=== PATIENT | male | born 1960 | race Caucasian/White ===

== ENCOUNTER 2017-06-05 12:39 | Emergency (ER) | payer SELFPAY ==
[~2017-06-05] VITALS: Ht 172.7 cm; Wt 72.5 kg
[~2017-06-05 12:39] MED LIST: BACT800T5 PO; EPIP0.3I IM
[2017-06-05 12:40] VITALS: BP 174/91; PULSE 109; RESP 20; TEMP 98.2; O2SAT 97
[2017-06-05] MEDS ORDERED: NAPR500T2 PO (14:32)
--- NOTE | 2017-06-05 14:36 | PD ---
HPI Chief Complaint: Back/ Neck Pain or Injury Time Seen by Provider: 14:27 Travel History International Travel<30 days: No Contact w/Intl Traveler<30days: No Traveled to known affect area: No History of Present Illness HPI 56-year-old male with history of chronic lower back pain presents for evaluation of the same. He reports a 10 year history of chronic lower back pain with sciatic symptoms. Over the past few weeks he has had increased lower back pain and this is what prompted evaluation. The pain is an aching pain in his lower back which is worse with movement. 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 He denies any trauma. He denies any current radicular symptoms. He denies any bowel or bladder incontinence, saddle anesthesia, weakness, abdominal pain, flank pain, testicular or scrotal pain, nausea or vomiting. He is not currently using any medication for symptom relief. He has no other complaints at this time. PFSH Past Medical History Arthritis: Yes (in both knees, neck, and back) Autoimmune Disease: No Heart Rhythm Problems: No Cancer: No Cardiovascular Problems: Yes (HTN, cholesterol) High Cholesterol: No Chemotherapy: No Cerebrovascular Accident: No Diabetes: No Diminished Hearing: No Endocrine: No Hypertension: Yes Immune Disorder: No Neurologic: No Psychiatric: No Respiratory: Yes Migraines: No Radiation Therapy: No Seizures: No Sickle Cell Disease: No Thyroid Disease: No Past Surgical History Abdominal Surgery: No AICD: No Arteriovenous Shunt: No Cardiac Surgery: No Ear Surgery: No Endocrine Surgery: No Eye Surgery: No Genitourinary Surgery: No Gynecologic Surgery: No Insulin Pump: No Joint Replacement: No Oral Surgery: No Pacemaker: No Thoracic Surgery: No Tonsillectomy: Yes Other Surgery: Yes (8 on r. knee; 1 on l. knee; tonsillectomy; MRSA on R. knee from operation.) Social History Alcohol Use: Yes (GREATER THAN 12 BEERS DAILY X 3 YRS) Tobacco Use: Yes (1 PK DAILY X 20 YRS) Substance Use: No Allergies-Medications (Allergen,Severity, Reaction): Coded Allergies: lisinopril (Unverified Allergy, Severe, seizure, 11/28/16) Reported Meds & Prescriptions Reported Meds & Active Scripts Active Naproxen 500 Mg Tab 500 Mg PO BID 10 Days Bactrim DS (Sulfamethoxazole-Trimethoprim DS) 1 Tab Tab 1 Tab PO BID 7 Days Epipen (Epinephrine HCl) 0.3 Mg Inj 0.3 Mg IM ONCE GIVE IM IN THIGH, MAY REPEAT IF NEEDED Review of Systems Except as stated in HPI: all other systems reviewed are Neg Physical Exam Narrative GENERAL: Well-developed well-nourished male in no acute distress SKIN: Warm and dry. HEAD: Atraumatic. Normocephalic. EYES: Pupils equal and round. No scleral icterus. No injection or drainage. ENT: No nasal bleeding or discharge. Mucous membranes pink and moist. NECK: Trachea midline. No JVD. CARDIOVASCULAR: Regular rate and rhythm. No murmur appreciated. RESPIRATORY: No accessory muscle use. Clear to auscultation. Breath sounds equal bilaterally. GASTROINTESTINAL: Abdomen soft, non-tender, nondistended. Hepatic and splenic margins not palpable. No palpable pulsatile masses MUSCULOSKELETAL: No obvious deformities. No clubbing. No cyanosis. No edema. No reproducible tenderness to palpation. 5 out of 5 muscle strength in lower extremity bilaterally. No CVA tenderness. NEUROLOGICAL: Awake and alert. No obvious cranial nerve deficits. Motor grossly within normal limits. Normal speech. PSYCHIATRIC: Appropriate mood and affect; insight and judgment normal. Data Data Last Documented VS Vital Signs Date Time Temp Pulse Resp B/P (MAP) Pulse Ox O2 Delivery O2 Flow Rate FiO2 06/05/17 12:40 98.2 109 20 174/91 (118) 97 Room Air Orders Orders Ketorolac Inj (Toradol Inj) (06/05/17 14:45) Ed Discharge Order (06/05/17 14:32) [facility] Medical Decision Making Medical Screen Exam Complete: Yes Emergency Medical Condition: Yes Medical Record Reviewed: Yes Differential Diagnosis Herniated nucleus pulposus, degenerative disc disease, spinal stenosis, compression fracture, AAA, ankylosing spondylitis Narrative Course His history and examination are consistent with chronic lower back pain. He has no red flag symptoms. The patient will be treated symptomatically with a short course of NSAIDs. Recommended follow-up with his primary care physician. Stable for discharge. Diagnosis Primary Impression: Chronic lower back pain Additional Instructions: Medication as needed. Take with meals. Avoid strenuous activity. Follow-up with primary care physician. Return for any emergent medical conditions. Med/Other Pt SpecificInfo: Prescription(s) given Scripts Naproxen (Naproxen) 500 Mg Tab 500 MG PO BID for 10 Days, #20 TAB 0 Refills Prov: Jill Hutchinson MD 06/05/17 Disposition: 01 DISCHARGE HOME Condition: Stable Seb Guardado Jun 05, 2017 14:36
[2017-06-05] MEDS ORDERED: KETOROLAC TROMETHAMINE 60 MG/2 ML (IM) VIAL IM ONE (14:45)
== END 2017-06-05 15:10 | disposition home or self-care (01) ==
LOC: NEPK 12:39
DX: M54.5 Low back pain (principal); G89.29 Other chronic pain; F17.200 Nicotine dependence, unspecified, uncomplicated
CPT/HCPCS: 96372; 99283; J1885

== ENCOUNTER 2017-06-24 19:46 | Inpatient (IN) | payer SELFPAY ==
[~2017-06-24] VITALS: Ht 172.7 cm; Wt 70.0 kg
[~2017-06-24 19:46] MED LIST changes: +NAPR500T2 PO
[2017-06-24 20:20] VITALS: BP_SYST 148; BP_SYST 154; BP_DIAS 83; BP_DIAS 99; PULSE 128; PULSE 93; RESP 16; TEMP 97.8; TEMP 98.5; O2SAT 98; O2SAT 99
--- NOTE | 2017-06-24 21:31 | PD ---
HPI Chief Complaint: Dizziness Time Seen by Provider: 21:14 Travel History International Travel<30 days: No Contact w/Intl Traveler<30days: No Traveled to known affect area: No History of Present Illness HPI 56-year-old male complains of dizziness. Patient states that the dizziness started 2 weeks ago. Patient states that the dizziness is worse with standing position. Patient denies any headache. Patient denies any visual change. Patient denies any ringing of the ears. Patient denies any neck pain. Patient denies any chest pain or shortness of breath. Patient denies abdominal pain. Patient states that he has history of alcohol abuse. Patient states that he drinks every day. Patient states that he has extremity shaking if he stops drinking. Patient denies any history of DT. Patient has history of chronic joint pain and back pain for 20 years. Patient states that he takes NSAIDs occasionally for joint pain. Patient denies any illicit drug abuse. Patient denies other medical problem. PFSH Past Medical History Arthritis: Yes (in both knees, neck, and back) Autoimmune Disease: No Heart Rhythm Problems: No Cancer: No Cardiovascular Problems: Yes (HTN, cholesterol) High Cholesterol: No Chemotherapy: No Cerebrovascular Accident: No Diabetes: No Diminished Hearing: No Endocrine: No Hypertension: Yes Immune Disorder: No Neurologic: No Psychiatric: No Respiratory: Yes Migraines: No Radiation Therapy: No Seizures: No Sickle Cell Disease: No Thyroid Disease: No Past Surgical History Abdominal Surgery: No AICD: No Arteriovenous Shunt: No Cardiac Surgery: No Ear Surgery: No Endocrine Surgery: No Eye Surgery: No Genitourinary Surgery: No Gynecologic Surgery: No Insulin Pump: No Joint Replacement: No Oral Surgery: No Pacemaker: No Thoracic Surgery: No Tonsillectomy: Yes Other Surgery: Yes (8 on r. knee; 1 on l. knee; tonsillectomy; MRSA on R. knee from operation.) Social History Alcohol Use: Yes (GREATER THAN 12 BEERS DAILY X 3 YRS) Tobacco Use: Yes (1 PK DAILY X 20 YRS) Substance Use: No Allergies-Medications (Allergen,Severity, Reaction): Coded Allergies: lisinopril (Unverified Allergy, Severe, seizure, 06/24/17) Reported Meds & Prescriptions Reported Meds & Active Scripts Active No Active Prescriptions or Reported Medications Review of Systems General / Constitutional: No: Fever Eyes: No: Visual changes HENT: Positive: Lightheadedness, No: Headaches Cardiovascular: No: Chest Pain or Discomfort Respiratory: No: Shortness of Breath Gastrointestinal: No: Abdominal Pain Genitourinary: No: Dysuria Musculoskeletal: No: Pain Skin: No Rash Neurologic: No: Weakness Psychiatric: No: Depression Endocrine: No: Polydipsia Hematologic/Lymphatic: No: Easy Bruising Physical Exam Narrative GENERAL: Well-nourished, well-developed patient. SKIN: Focused skin assessment warm/dry. HEAD: Normocephalic. EYES: No scleral icterus. No injection or drainage. Pupils 2 mm equal reactive. NECK: Supple, trachea midline. No JVD or lymphadenopathy. CARDIOVASCULAR: Regular rate and rhythm without murmurs, gallops, or rubs. RESPIRATORY: Breath sounds equal bilaterally. No accessory muscle use. GASTROINTESTINAL: Abdomen soft, non-tender, nondistended. MUSCULOSKELETAL: No cyanosis, or edema. BACK: Nontender without obvious deformity. No CVA tenderness. Neurologic exam: Patient is awake alert oriented 3. Patient has fine tremor of the extremity. Patient moves all extremities well. No obvious focal neurological deficit. Data Data Last Documented VS Vital Signs Date Time Temp Pulse Resp B/P (MAP) Pulse Ox O2 Delivery O2 Flow Rate FiO2 06/25/17 00:32 108 21 149/73 (98) 98 Room Air 06/24/17 20:20 97.8 Orders Orders Complete Blood Count With Diff (06/24/17 21:25) Comprehensive Metabolic Panel (06/24/17 21:25) Prothrombin Time / Inr (Pt) (06/24/17 21:25) Act Partial Throm Time (Ptt) (06/24/17 21:25) Urinalysis - C+S If Indicated (06/24/17 21:25) Magnesium (Mg) (06/24/17 21:25) Thyroid Stimulating Hormone (06/24/17 21:25) Phosphorus (Po4) (06/24/17 21:25) Chest, Single Ap (06/24/17 21:25) Ct Brain W/O Iv Contrast(Rout) (06/24/17 21:25) Iv Access Insert/Monitor (06/24/17 21:25) Ecg Monitoring (06/24/17 21:25) Oximetry (06/24/17 21:25) Drug Screen, Random Urine (06/24/17 21:25) Alcohol (Ethanol) (06/24/17 21:25) Sodium Chlor 0.9% 1000 Ml Inj (Ns 1000 M (06/24/17 21:45) Thiamine Inj (Thiamine Inj) (06/24/17 21:45) Lorazepam Inj (Ativan Inj) (06/25/17 00:30) Thiamine Inj (Thiamine Inj) (06/25/17 00:30) Sodium Chlor 0.9% 1000 Ml Inj (Ns 1000 M (06/25/17 00:30) Alcohol Withdrawal Asmt-Ciwa ONCE (06/25/17 00:31) Flumazenil Inj (Romazicon Inj) (06/25/17 00:45) Lorazepam (Ativan) (06/25/17 00:45) Lorazepam Inj (Ativan Inj) (06/25/17 00:45) Lorazepam (Ativan) (06/25/17 00:45) Lorazepam Inj (Ativan Inj) (06/25/17 00:45) Lorazepam Inj (Ativan Inj) (06/25/17 00:45) Lorazepam Inj (Ativan Inj) (06/25/17 00:45) Labs Laboratory Tests Test 06/24/17 21:35 White Blood Count 12.6 TH/MM3 Red Blood Count 3.80 MIL/MM3 Hemoglobin 14.2 GM/DL Hematocrit 41.3 % Mean Corpuscular Volume 108.7 FL Mean Corpuscular Hemoglobin 37.3 PG Mean Corpuscular Hemoglobin Concent 34.3 % Red Cell Distribution Width 13.7 % Platelet Count 170 TH/MM3 Mean Platelet Volume 8.8 FL Neutrophils (%) (Auto) 87.9 % Lymphocytes (%) (Auto) 4.4 % Monocytes (%) (Auto) 7.2 % Eosinophils (%) (Auto) 0.1 % Basophils (%) (Auto) 0.4 % Neutrophils # (Auto) 11.1 TH/MM3 Lymphocytes # (Auto) 0.5 TH/MM3 Monocytes # (Auto) 0.9 TH/MM3 Eosinophils # (Auto) 0.0 TH/MM3 Basophils # (Auto) 0.0 TH/MM3 CBC Comment DIFF FINAL Differential Comment Prothrombin Time 11.8 SEC Prothromb Time International Ratio 1.2 RATIO Activated Partial Thromboplast Time 24.7 SEC Blood Urea Nitrogen 24 MG/DL Creatinine 2.33 MG/DL Random Glucose 92 MG/DL Total Protein 8.3 GM/DL Albumin 4.6 GM/DL Calcium Level 9.5 MG/DL Phosphorus Level 4.3 MG/DL Magnesium Level 2.0 MG/DL Alkaline Phosphatase 87 U/L Aspartate Amino Transf (AST/SGOT) 104 U/L Alanine Aminotransferase (ALT/SGPT) 74 U/L Total Bilirubin 1.9 MG/DL Sodium Level 130 MEQ/L Potassium Level 3.7 MEQ/L Chloride Level 94 MEQ/L Carbon Dioxide Level 20.2 MEQ/L Anion Gap 16 MEQ/L Estimat Glomerular Filtration Rate 29 ML/MIN Thyroid Stimulating Hormone 3rd Gen 1.530 uIU/ML Ethyl Alcohol Level LESS THAN 3 MG/DL MDM Medical Decision Making Medical Screen Exam Complete: Yes Emergency Medical Condition: Yes Interpretation(s) 22:51 PM. Chest x-ray shows no acute consolidation. CBC WBC 12.6. Hemoglobin 14.2 hematocrit 41.3. MCV 108.7. 87 neutrophil. 12:25 AM. Last Impressions Head CT 06/24/172124 Signed Impressions: Service Date/Time: Saturday, June 24, 2017 22:35 - CONCLUSION: 1. No acute findings in the brain. 2. Mild central and cortical atrophy and right lacunar infarct. Ankit Sparks MD Chest X-Ray 06/24/172124 Signed Impressions: Service Date/Time: Saturday, June 24, 2017 22:05 - CONCLUSION: The lungs are clear. Ankit Sparks MD 12:25 AM. Sodium 130. Chloride 94. Bicarb 20.2. Anion gap 16. BUN 24. Creatinine 2.33. GFR 29. Bili 1.9. AST 104. INR 1.2. Alcohol less than 3. Differential Diagnosis Differential diagnosis including alcohol intoxication, electrolyte imbalance, dehydration, alcohol withdrawal, deconditioning. Narrative Course 56-year-old male complains of dizziness. History of alcohol abuse. Normal saline solution 1 25 cc an hour. Ativan 2 mg IV. Thiamine 100 mg IV. Patient will be admitted for alcohol withdrawal. WA protocol started. Diagnosis Primary Impression: Alcohol withdrawal Qualified Codes: F10.230 - Alcohol dependence with withdrawal, uncomplicated Additional Impression: Hyponatremia Admitting Information Admitting Physician Requests: Admit Scripts No Active Prescriptions or Reported Meds Shay Gibson MD Jun 24, 2017 21:31
[2017-06-24 21:34] VITALS: BP 155/100; PULSE 105; RESP 18; O2SAT 95
[2017-06-24] MEDS ORDERED: THIAMINE INJ 100 MG in SODIUM CHLORIDE 0.9% INJ 100 ML IV ONE (21:45)
[2017-06-24] MEDS ORDERED: SODIUM CHLOR 0.9% 1000 ML INJ 1,000 ML IV ONE (21:45)
[2017-06-24 22:14] LABS: AUTOMATED NEUTROPHIL # 11.1 TH/MM3 (1.8-7.7); BASOPHIL % 0.4 % (0.0-2.0); EOSINOPHIL % 0.1 % (0.0-4.0); HEMATOCRIT 41.3 % (39.0-51.0); HEMOGLOBIN 14.2 GM/DL (13.0-17.0); LYMPH % 4.4 % (9.0-44.0); LYMPHOCYTE # 0.5 TH/MM3 (1.0-4.8); MEAN CELL VOLUME 108.7 FL (80.0-100.0); MEAN CORPUSCULAR HEMOGLOBIN 37.3 PG (27.0-34.0); MEAN CORPUSCULAR HGB CONC 34.3 % (32.0-36.0); MEAN PLATELET VOLUME 8.8 FL (7.0-11.0); MONO % 7.2 % (0.0-8.0); MONOCYTE # 0.9 TH/MM3 (0-0.9); NEUT % 87.9 % (16.0-70.0); PLATELET COUNT 170 TH/MM3 (150-450); RED CELL DISTRIBUTION WIDTH 13.7 % (11.6-17.2); WHITE BLOOD COUNT 12.6 TH/MM3 (4.0-11.0)
--- NOTE | 2017-06-24 22:28 | RADRPT ---
EXAM DATE/TIME: 06/24/2017 22:05 [facility] COMPARISON: No previous studies available for comparison. INDICATIONS : Short of breath. Weakness. Falls. MEDICAL HISTORY : None. SURGICAL HISTORY : None. ENCOUNTER: Initial ACUITY: 4 - 6 days PAIN SCORE: 7/10 LOCATION: Bilateral chest FINDINGS: A single view of the chest demonstrates the lungs to be symmetrically aerated without evidence of mas s, infiltrate or effusion. The cardiomediastinal contours are unremarkable. Osseous structures are intact. CONCLUSION: The lungs are clear. Ankit Sparks MD on June 24, 2017 at 22:26 Board Certified Radiologist. This report was verified electronically.
[2017-06-24 22:32] LABS: INTERNATIONAL NORMALIZED RATIO 1.2 RATIO; PROTHROMBIN TIME - PATIENT 11.8 SEC (9.8-11.6)
[2017-06-24 22:40] LABS: ALBUMIN 4.6 GM/DL (3.4-5.0); AST (GOT) 104 U/L (15-37); BICARBONATE 20.2 MEQ/L (21.0-32.0); BLOOD UREA NITROGEN 24 MG/DL (7-18); CALCIUM 9.5 MG/DL (8.5-10.1); CHLORIDE 94 MEQ/L (98-107); CREATININE 2.33 MG/DL (0.60-1.30); GLOMERULAR FILTRATION RATE 29 ML/MIN (>89); GLUCOSE,RANDOM 92 MG/DL (74-106); SODIUM (NA) 130 MEQ/L (136-145)
[2017-06-24 22:42] LABS: ALT (GPT) 74 U/L (12-78); PHOSPHORUS 4.3 MG/DL (2.5-4.9)
[2017-06-24 22:51] LABS: ALKALINE PHOSPHATASE 87 U/L (45-117); TOTAL BILIRUBIN ADULT 1.9 MG/DL (0.2-1.0); TOTAL PROTEIN 8.3 GM/DL (6.4-8.2)
--- NOTE | 2017-06-24 22:58 | RADRPT ---
EXAM DATE/TIME: 06/24/2017 22:35 [facility] COMPARISON: No previous studies available for comparison. INDICATIONS : Dizziness x two weeks. Weakness today. RADIATION DOSE: 66.34 CTDIvol (mGy) MEDICAL HISTORY : Cardiovascular disease. Hypertension. SURGICAL HISTORY : None. ENCOUNTER: Initial ACUITY: 2 weeks PAIN SCALE: 0/10 LOCATION: cranial TECHNIQUE: Multiple contiguous axial images were obtained of the head. Using automated exposure control and adj ustment of the mA and/or kV according to patient size, radiation dose was kept as low as reasonably a chievable to obtain optimal diagnostic quality images. DICOM format image data is available electro nically for review and comparison. FINDINGS: CEREBRUM: The ventricles, sulci, and basal cisterns are prominent, characteristic of mild central atrophy. The re is a lacunar infarct in the right snider radiata.. No evidence of midline shift, mass lesion, hem orrhage or acute infarction. No extra-axial fluid collections are seen. POSTERIOR FOSSA: The cerebellum and brainstem are intact. The 4th ventricle is midline. The cerebellopontine angle i s unremarkable. EXTRACRANIAL: The visualized portion of the orbits is intact. SKULL: The calvaria is intact. No evidence of skull fracture. CONCLUSION: 1. No acute findings in the brain. 2. Mild central and cortical atrophy and right lacunar infarct. Ankit Sparks MD on June 24, 2017 at 22:49 Board Certified Radiologist. This report was verified electronically.
[2017-06-25] VITALS (10 sets, daily range): BP systolic 132–159; BP diastolic 73–96; PULSE 62–108; RESP 15–22; TEMP 98.6–99; O2SAT 94–99
[2017-06-25] MEDS ORDERED: THIAMINE INJ 100 MG in SODIUM CHLORIDE 0.9% INJ 100 ML IV ONE (00:30)
[2017-06-25] MEDS ORDERED: SODIUM CHLOR 0.9% 1000 ML INJ 1,000 ML IV SCH (00:30)
[2017-06-25] MEDS ORDERED: LORazepam 2 MG/ML VIAL IV PUSH ONE (00:30)
[2017-06-25] MEDS ORDERED: FLUMAZENIL 0.5 MG/5 ML VIAL IV PUSH PRN (00:45)
[2017-06-25] MEDS ORDERED: LORazepam 1 MG TAB PO PRN (00:45)
[2017-06-25] MEDS ORDERED: LORazepam 2 MG/ML VIAL IV PUSH PRN ×4 (00:45)
[2017-06-25] MEDS ORDERED: LORazepam 2 MG TAB PO PRN (00:45)
[2017-06-25] MEDS ORDERED: SENNOSIDES 8.6 MG TAB PO PRN (01:15)
[2017-06-25] MEDS ORDERED: MAGNESIUM HYDROXIDE SUSP 30 ML CUP PO PRN (01:15)
[2017-06-25] MEDS ORDERED: SODIUM CHLORIDE 0.9% FLUSH 10 ML FLUSH IV FLUSH PRN (01:15)
[2017-06-25] MEDS ORDERED: LACTULOSE SYRUP 20 GM/30 ML CUP PO PRN (01:15)
[2017-06-25] MEDS ORDERED: ACETAMINOPHEN 325 MG TAB PO PRN (01:15)
[2017-06-25] MEDS ORDERED: ONDANSETRON HCL 4 MG/2 ML VIAL IVP PRN (01:15)
[2017-06-25] MEDS ORDERED: BISACODYL 10 MG SUPP RECTAL PRN (01:15)
[2017-06-25] MEDS: SODIUM CHLOR 0.9% 1000 ML INJ 1,000 ML IV SCH ×3 (01:19→21:04)
--- NOTE | 2017-06-25 03:10 | HHI.HP ---
HPI Service [facility] Primary Care Physician No Primary Care Physician Admission Diagnosis Alcohol withdrawal Diagnoses: (1) Alcohol abuse Diagnosis: Principal (2) SUNDAY (acute kidney injury) Diagnosis: Principal (3) Leukocytosis Diagnosis: Principal (4) Tobacco abuse Diagnosis: Principal Travel History International Travel<30 Days: No Contact w/Intl Traveler <30 Da: No Traveled to Known Affected Are: No History of Present Illness This is a 56-year-old male with PMH of HTN, Alcohol Abuse and Tobacco Abuse who presented to the ER with complaints of dizziness and "shaking". Drinks more than 12 beers/day, reports h/o withdrawal symptoms. Denies fever, chills, cough , nausea, vomiting or diarrhea. On arrival, BP 154/99, HR 128, O2 sat 99% on RA , Afebrile. WBC 12. Na 130, Creatinine 2.33, previously 0.29 on 06/19/13. INR 1.2. Alcohol negative. CXR with no acute findings. CT Head Negative for Acute Findings, Old Right Lacunar Infarct. Started on CIWA in ER. Review of Systems Except as stated in HPI: all other systems reviewed are Neg ROS: 14 point review of systems otherwise negative. Past Family Social History Past Medical History PMH: HTN, Alcohol Abuse and Tobacco Abuse Past Surgical History PAST SURGICAL HISTORY: Tonsillectomy, Right Knee Surgery Allergies: Coded Allergies: lisinopril (Unverified Allergy, Severe, seizure, 06/24/17) Family History PAST FAMILY HISTORY: Reviewed. No h/o DM or CAD Social History PAST SOCIAL HISTORY: Drinks 12 or more beers per day. Smokes 1ppd. Negative for drugs. Physical Exam Vital Signs Vital Signs Date Time Temp Pulse Resp B/P (MAP) Pulse Ox O2 Delivery O2 Flow Rate FiO2 06/25/17 01:22 97 20 140/84 (102) 96 Room Air 06/25/17 00:32 108 21 149/73 (98) 98 Room Air 06/24/17 21:34 105 18 155/100 (118) 95 Room Air 06/24/17 20:20 97.8 128 16 154/99 (117) 99 Physical Exam PE: GENERAL: Middle-aged male in no acute distress. Mild tremors. HEENT: PERRLA, EOMI. No scleral icterus or conjunctival pallor. No lid lag or facial droop. CARDIOVASCULAR: Regular rate and rhythm. No obvious murmurs to auscultation. No chest tenderness to palpation. RESPIRATORY: No obvious rhonchi or wheezing. Clear to auscultation. Breath sounds equal bilaterally. GASTROINTESTINAL: Abdomen soft, non-tender, nondistended. BS normal. MUSCULOSKELETAL: Extremities without clubbing, cyanosis, or edema. No obvious deformities. NEUROLOGICAL: Awake, alert and oriented x4. No focal neurologic deficits. Moving both upper and lower extremities spontaneously. Laboratory Laboratory Tests Test 06/24/17 21:35 White Blood Count 12.6 Red Blood Count 3.80 Hemoglobin 14.2 Hematocrit 41.3 Mean Corpuscular Volume 108.7 Mean Corpuscular Hemoglobin 37.3 Mean Corpuscular Hemoglobin Concent 34.3 Red Cell Distribution Width 13.7 Platelet Count 170 Mean Platelet Volume 8.8 Neutrophils (%) (Auto) 87.9 Lymphocytes (%) (Auto) 4.4 Monocytes (%) (Auto) 7.2 Eosinophils (%) (Auto) 0.1 Basophils (%) (Auto) 0.4 Neutrophils # (Auto) 11.1 Lymphocytes # (Auto) 0.5 Monocytes # (Auto) 0.9 Eosinophils # (Auto) 0.0 Basophils # (Auto) 0.0 CBC Comment DIFF FINAL Differential Comment Prothrombin Time 11.8 Prothromb Time International Ratio 1.2 Activated Partial Thromboplast Time 24.7 Blood Urea Nitrogen 24 Creatinine 2.33 Random Glucose 92 Total Protein 8.3 Albumin 4.6 Calcium Level 9.5 Phosphorus Level 4.3 Magnesium Level 2.0 Alkaline Phosphatase 87 Aspartate Amino Transf (AST/SGOT) 104 Alanine Aminotransferase (ALT/SGPT) 74 Total Bilirubin 1.9 Sodium Level 130 Potassium Level 3.7 Chloride Level 94 Carbon Dioxide Level 20.2 Anion Gap 16 Estimat Glomerular Filtration Rate 29 Thyroid Stimulating Hormone 3rd Gen 1.530 Ethyl Alcohol Level LESS THAN 3 Result Diagram: 06/24/17213406/24/172134 Caprini VTE Risk Assessment Caprini VTE Risk Assessment: No/Low Risk (score <= 1) Caprini Risk Assessment Model Point Value = 1 Point Value = 2 Point Value = 3 Point Value = 5 Age 41-60 Minor surgery BMI > 25 kg/m2 Swollen legs Varicose veins or History of unexplained or recurrent spontaneous Oral contraceptives or hormone replacement Sepsis (< 1 month) Serious lung disease, including pneumonia (< 1 month) Abnormal pulmonary function Acute myocardial infarction Congestive heart failure (< 1 month) History of inflammatory bowel disease Medical patient at bed rest Age 61-74 Arthroscopic surgery Major open surgery (> 45 min) Laparoscopic surgery (> 45 min) Malignancy Confined to bed (> 72 hours) Immobilizing plaster cast Central venous access Age >= 75 History of VTE Family history of VTE Factor V Leiden Prothrombin [id number] Lupus anticoagulant Anticardiolipin antibodies Elevated serum homocysteine Heparin-induced thrombocytopenia Other congenital or acquired thrombophilia Stroke (< 1 month) Elective arthroplasty Hip, pelvis, or leg fracture Acute spinal cord injury (< 1 month) Prophylaxis Regimen Total Risk Factor Score Risk Level Prophylaxis Regimen 0-1 Low Early ambulation 2 Moderate Order ONE of the following: *Sequential Compression Device (SCD) *Heparin 5000 units SQ BID 3-4 Higher Order ONE of the following medications: *Heparin 5000 units SQ TID *Enoxaparin/Lovenox 40 mg SQ daily (WT < 150 kg, CrCl > 30 mL/min) *Enoxaparin/Lovenox 30 mg SQ daily (WT < 150 kg, CrCl > 10-29 mL/min) *Enoxaparin/Lovenox 30 mg SQ BID (WT < 150 kg, CrCl > 30 mL/min) AND/OR *Sequential Compression Device (SCD) 5 or more Highest Order ONE of the following medications: *Heparin 5000 units SQ TID (Preferred with Epidurals) *Enoxaparin/Lovenox 40 mg SQ daily (WT < 150 kg, CrCl > 30 mL/min) *Enoxaparin/Lovenox 30 mg SQ daily (WT < 150 kg, CrCl > 10-29 mL/min) *Enoxaparin/Lovenox 30 mg SQ BID (WT < 150 kg, CrCl > 30 mL/min) AND *Sequential Compression Device (SCD) Assessment and Plan Problem List: (1) Alcohol abuse ICD Code: F10.10 - Alcohol abuse, uncomplicated (2) Leukocytosis ICD Code: D72.829 - Elevated white blood cell count, unspecified (3) SUNDAY (acute kidney injury) ICD Code: N17.9 - Acute kidney failure, unspecified (4) Tobacco abuse ICD Code: Z72.0 - Tobacco use Assessment and Plan A/P: 1. Alcohol Abuse: w/ Acute Alcohol Intoxication. Started on CIWA, Seizure Precautions, MVT/Thiamine/Folate replacement. IVF for hydration. 2. Leukocytosis: WBC 12, afebrile, CXR w/ no acute infiltrate, no obvious infection noted. Repeat labs in am. 3. SUNDAY: Creatinine 2.33, previously 0.29 on 06/19/13. IVF for hydration. Repeat labs in a.m. 4. Tobacco Abuse: Patient counseled. NicoDerm prn if needed. 5. DVT Prophylaxis: SCD/teds. 6. Social work for DC planning as needed. 7. Case discussed at length with ER physician, labs/records/imaging reviewed by me. Physician Certification 2 Midnight Certification Type: Admission for Inpatient Services Order for Inpatient Services The services are ordered in accordance with Medicare regulations or non- Medicare payer requirements, as applicable. In the case of services not specified as inpatient-only, they are appropriately provided as inpatient services in accordance with the 2-midnight benchmark. Estimated LOS (days): 2 days is the estimated time the patient will need to remain in the hospital, assuming treatment plan goals are met and no additional complications. Post-Hospital Plan: Not yet determined Ekaterina Villatoro MD Jun 25, 2017 03:10
[2017-06-25] MEDS: THIAMINE INJ 500 MG in SODIUM CHLOR 0.9% 250 ML INJ 250 ML IV SCH ×3 (04:08→18:48)
[2017-06-25] MEDS: SODIUM CHLORIDE 0.9% FLUSH 10 ML FLUSH IV FLUSH SCH ×2 (09:00→21:00)
[2017-06-25] MEDS: DOCUSATE SODIUM 50 MG/SENNA 8.6 MG TAB PO SCH ×2 (09:00→21:30)
[2017-06-25] MEDS: FOLIC ACID 1 MG TAB PO SCH (09:00)
[2017-06-25] MEDS: MULTIVITAMINS/MINERALS THERAPEUTIC TAB PO SCH (09:00)
[2017-06-25 09:46] LABS: BILIRUBIN, URINE NEG (NEG); BLOOD, URINE NEG (NEG); GLUCOSE,URINE NEG (NEG); HYALINE CAST, URINE 29 /lpf (RARE); KETONE, URINE 40 mg/dL (NEG); MUCUS URINE FEW /lpf (OCC); NITRITE,URINE NEG (NEG); PH, URINE 5.5 (5.0-8.5); URINE COLOR YELLOW (YELLW/STRAW); URINE LEUKOCYTE ESTERASE NEG (NEG)
[2017-06-26] MEDS: THIAMINE INJ 500 MG in SODIUM CHLOR 0.9% 250 ML INJ 250 ML IV SCH ×3 (02:39→18:05)
[2017-06-26 03:58] VITALS: BP 149/85; PULSE 64; RESP 15; TEMP 98.7; O2SAT 96
[2017-06-26 07:36] VITALS: BP 159/99; PULSE 62; RESP 18; TEMP 98.4; O2SAT 99
[2017-06-26 08:00] VITALS: PULSE 51
[2017-06-26 08:19] LABS: ALBUMIN 3.2 GM/DL (3.4-5.0); ALKALINE PHOSPHATASE 59 U/L (45-117); ALT (GPT) 50 U/L (12-78); AST (GOT) 64 U/L (15-37); BICARBONATE 24.3 MEQ/L (21.0-32.0); BLOOD UREA NITROGEN 14 MG/DL (7-18); CALCIUM 8.2 MG/DL (8.5-10.1); CHLORIDE 107 MEQ/L (98-107); CREATININE 0.64 MG/DL (0.60-1.30); GLOMERULAR FILTRATION RATE 130 ML/MIN (>89); GLUCOSE,RANDOM 94 MG/DL (74-106); SODIUM (NA) 139 MEQ/L (136-145); TOTAL BILIRUBIN ADULT 0.8 MG/DL (0.2-1.0); TOTAL PROTEIN 6.1 GM/DL (6.4-8.2)
[2017-06-26] MEDS: SODIUM CHLORIDE 0.9% FLUSH 10 ML FLUSH IV FLUSH SCH ×2 (08:31→19:43)
[2017-06-26] MEDS: DOCUSATE SODIUM 50 MG/SENNA 8.6 MG TAB PO SCH ×2 (08:34→19:44)
[2017-06-26] MEDS: FOLIC ACID 1 MG TAB PO SCH (08:35)
[2017-06-26] MEDS: MULTIVITAMINS/MINERALS THERAPEUTIC TAB PO SCH (08:35)
[2017-06-26] MEDS: SODIUM CHLOR 0.9% 1000 ML INJ 1,000 ML IV SCH ×2 (08:40→18:03)
[2017-06-26 08:57] LABS: AUTOMATED NEUTROPHIL # 5.1 TH/MM3 (1.8-7.7); BASOPHIL # 0.1 TH/MM3 (0-0.2); EOSINOPHIL # 0.1 TH/MM3 (0-0.4); EOSINOPHIL % 1.6 % (0.0-4.0); HEMATOCRIT 33.7 % (39.0-51.0); HEMOGLOBIN 11.6 GM/DL (13.0-17.0); LYMPH % 11.7 % (9.0-44.0); LYMPHOCYTE # 0.8 TH/MM3 (1.0-4.8); MEAN CORPUSCULAR HEMOGLOBIN 37.6 PG (27.0-34.0); MEAN CORPUSCULAR HGB CONC 34.5 % (32.0-36.0); MEAN PLATELET VOLUME 8.4 FL (7.0-11.0); MONO % 12.1 % (0.0-8.0); MONOCYTE # 0.8 TH/MM3 (0-0.9); NEUT % 73.6 % (16.0-70.0); PLATELET COUNT 149 TH/MM3 (150-450); RED BLOOD COUNT 3.09 MIL/MM3 (4.50-5.90); RED CELL DISTRIBUTION WIDTH 13.8 % (11.6-17.2)
[2017-06-26] MEDS ORDERED: INFLUENZA VIRUS VACCINE (QUADRIVALENT) 0.5 ML SYR IM ONE (10:00)
[2017-06-26] MEDS ORDERED: PNEUMOCOCCAL POLYVALENT INJ 25 MCG/0.5 ML SYR IM ONE (10:00)
[2017-06-26 11:14] VITALS: BP 170/93; PULSE 62; RESP 19; TEMP 97.3; O2SAT 97
[2017-06-26] MEDS ORDERED: cloNIDine HCL 0.1 MG TAB PO PRN (12:00)
[2017-06-26] MEDS ORDERED: LISINOPRIL 5 MG TAB PO SCH (12:00)
--- NOTE | 2017-06-26 12:43 | HHI.PR ---
Subjective Remarks Resting in bed He looks frail and shaky He told me he felt wobbly when he tried to go to the bathroom today Afebrile overnight Objective Vitals Vital Signs Date Time Temp Pulse Resp B/P (MAP) Pulse Ox O2 Delivery O2 Flow Rate FiO2 06/26/17 11:14 97.3 62 19 170/93 (118) 97 06/26/17 08:00 51 06/26/17 07:36 98.4 62 18 159/99 (119) 99 06/26/17 03:58 98.7 64 15 149/85 (106) 96 06/25/17 23:42 99.0 62 16 156/86 (109) 97 06/25/17 23:20 71 06/25/17 20:22 98.7 88 16 150/89 (109) 97 06/25/17 18:36 70 06/25/17 17:55 98.6 80 16 141/92 (108) 98 06/25/17 15:56 I/O 06/25/17 06/25/17 06/25/17 06/26/17 06/26/17 06/26/17 07:00 15:00 23:00 07:00 15:00 23:00 Intake Total 1101 ml Output Total 300 ml 650 ml Balance 1101 ml -300 ml -650 ml Intake IV Total 1101 ml Output Urine Total 300 ml 650 ml # Voids 1 3 # Bowel Movements 1 Result Diagram: 06/26/17 0615 06/26/17 0615 Objective Remarks GENERAL: This is a frail 56 years old patient in no acute distress SKIN: No rashes, warm and dry HEAD: Atraumatic. Normocephalic. EYES: Pupils equal round and reactive. Extraocular motions intact. No scleral icterus. ENT: Nose without bleeding, or drainage, Airway patent. NECK: Trachea midline. Supple CARDIOVASCULAR: Regular rate and rhythm without murmurs, gallops, or rubs. RESPIRATORY: Fair air entry bilaterally. No wheezes, rales, or rhonchi. GASTROINTESTINAL: Abdomen soft, non-tender, nondistended. Positive bowel sounds MUSCULOSKELETAL: Extremities without clubbing, cyanosis, or edema. Pedal pulses appreciated NEUROLOGICAL: Awake and alert. Moves all extremity. Normal speech.no focal neurological deficit A/P Problem List: (1) Alcohol abuse ICD Code: F10.10 - Alcohol abuse, uncomplicated (2) Leukocytosis ICD Code: D72.829 - Elevated white blood cell count, unspecified (3) SUNDAY (acute kidney injury) ICD Code: N17.9 - Acute kidney failure, unspecified (4) Tobacco abuse ICD Code: Z72.0 - Tobacco use Assessment and Plan 1. Alcohol Abuse: w/ Acute Alcohol Intoxication. Started on CIWA, Seizure Precautions, MVT/Thiamine/Folate replacement. IVF for hydration. 2. Leukocytosis: WBC 12, afebrile, CXR w/ no acute infiltrate, no obvious infection noted. Repeat labs in am. 3. SUNDAY: Creatinine 2.33, previously 0.29 on 06/19/13. IVF for hydration. Repeat labs in a.m. 4. Tobacco Abuse: Patient counseled. NicoDerm prn if needed. 5. DVT Prophylaxis: SCD/teds. 06/26: Creatinine improved significantly from above 2 now below 1, also metabolic acidosis resolved, hypokalemic 3.3, magnesium 1.8, will replace, will do PT assessment patient feels very weak and wobbly, attentively discharge within 1-2 days if stable Leukocytosis resolved, IV hydration revealed anemia hemoglobin dropped from 14- 11, hyperchromic microcytic mostly due to alcoholism, continue thiamine and folic acid Tucker Cardoso MD Jun 26, 2017 12:43
[2017-06-26] MEDS: cloNIDine HCL 0.1 MG TAB PO SCH (14:27)
[2017-06-26] MEDS: POTASSIUM CHLORIDE 10 MEQ CONTROLLED RELEASE TAB PO SCH ×2 (14:27→18:03)
[2017-06-26 16:06] VITALS: BP 128/81; PULSE 69; RESP 18; TEMP 98.2; O2SAT 95
[2017-06-26 20:40] VITALS: BP 137/85; PULSE 66; RESP 18; TEMP 99.4; O2SAT 96
[2017-06-27] VITALS (11 sets, daily range): BP systolic 142–172; BP diastolic 84–96; PULSE 55–76; RESP 16–18; TEMP 98–99.1; O2SAT 95–99
[2017-06-27] MEDS: SODIUM CHLOR 0.9% 1000 ML INJ 1,000 ML IV SCH ×3 (05:51→22:26)
[2017-06-27] MEDS ORDERED: THIAMINE INJ 500 MG in SODIUM CHLOR 0.9% 250 ML INJ 500 ML IV SCH (09:00)
[2017-06-27] MEDS: DOCUSATE SODIUM 50 MG/SENNA 8.6 MG TAB PO SCH ×2 (09:00→20:48)
[2017-06-27] MEDS: SODIUM CHLORIDE 0.9% FLUSH 10 ML FLUSH IV FLUSH SCH ×2 (09:00→20:48)
[2017-06-27] MEDS: cloNIDine HCL 0.1 MG TAB PO SCH ×2 (09:07→16:07)
[2017-06-27] MEDS: MAGNESIUM SULFATE 1 GM PREMIX 100 ML IV SCH ×2 (09:07→10:43)
[2017-06-27] MEDS: FOLIC ACID 1 MG TAB PO SCH (09:07)
[2017-06-27] MEDS: MULTIVITAMINS/MINERALS THERAPEUTIC TAB PO SCH (09:07)
--- NOTE | 2017-06-27 12:03 | HHI.PR ---
Subjective Remarks "I am still shaky and wobbly " Patient seen and examined with the nurse at the bedside He stated he feels extremely weak and wobbly when he tried to do physical exam Objective Vitals Vital Signs Date Time Temp Pulse Resp B/P (MAP) Pulse Ox O2 Delivery O2 Flow Rate FiO2 06/27/17 11:45 98.0 62 18 148/94 (112) 97 06/27/17 08:00 66 06/27/17 07:52 98.2 66 18 167/96 (119) 95 06/27/17 04:18 98.8 55 17 163/86 (111) 96 06/27/17 03:44 56 06/27/17 01:58 98.3 76 16 147/84 (105) 99 06/26/17 20:40 99.4 66 18 137/85 (102) 96 06/26/17 16:06 98.2 69 18 128/81 (97) 95 I/O 06/26/17 06/26/17 06/26/17 06/27/17 06/27/17 06/27/17 07:00 15:00 23:00 07:00 15:00 23:00 Intake Total 725 ml 200 ml Balance 725 ml 200 ml Intake Oral 725 ml IV Total 200 ml # Voids 3 7 2 Result Diagram: 06/26/1761406/26/17614 Objective Remarks GENERAL: This is a frail 56 years old patient in no acute distress SKIN: No rashes, warm and dry HEAD: Atraumatic. Normocephalic. EYES: Pupils equal round and reactive. Extraocular motions intact. No scleral icterus. ENT: Nose without bleeding, or drainage, Airway patent. NECK: Trachea midline. Supple CARDIOVASCULAR: Regular rate and rhythm without murmurs, gallops, or rubs. RESPIRATORY: Fair air entry bilaterally. No wheezes, rales, or rhonchi. GASTROINTESTINAL: Abdomen soft, non-tender, nondistended. Positive bowel sounds MUSCULOSKELETAL: Extremities without clubbing, cyanosis, or edema. Pedal pulses appreciated NEUROLOGICAL: Awake and alert. Moves all extremity. Normal speech.no focal neurological deficit A/P Problem List: (1) Alcohol abuse ICD Code: F10.10 - Alcohol abuse, uncomplicated (2) Leukocytosis ICD Code: D72.829 - Elevated white blood cell count, unspecified (3) SUNDAY (acute kidney injury) ICD Code: N17.9 - Acute kidney failure, unspecified (4) Tobacco abuse ICD Code: Z72.0 - Tobacco use Assessment and Plan 1. Alcohol Abuse: w/ Acute Alcohol Intoxication. Started on CIWA, Seizure Precautions, MVT/Thiamine/Folate replacement. IVF for hydration. 2. Leukocytosis: WBC 12, afebrile, CXR w/ no acute infiltrate, no obvious infection noted. Repeat labs in am. 3. SUNDAY: Creatinine 2.33, previously 0.29 on 06/19/13. IVF for hydration. Repeat labs in a.m. 4. Tobacco Abuse: Patient counseled. NicoDerm prn if needed. 5. DVT Prophylaxis: SCD/teds. 06/26: Creatinine improved significantly from above 2 now below 1, also metabolic acidosis resolved, hypokalemic 3.3, magnesium 1.8, will replace, will do PT assessment patient feels very weak and wobbly, attentively discharge within 1-2 days if stable Leukocytosis resolved, IV hydration revealed anemia hemoglobin dropped from 14- 11, hyperchromic microcytic mostly due to alcoholism, continue thiamine and folic acid 06/27: Continue physical therapy, hopefully will be able to go home with home health and walker in a.m. Discharge Planning Plan to go home with home health care with walker a stable enough in a.m. Tucker Cardoso MD Jun 27, 2017 12:03
[2017-06-27] MEDS: amLODIPine BESYLATE 5 MG TAB PO SCH (13:02)
[2017-06-28 00:01] VITALS: BP 154/81; PULSE 60; PULSE 62; RESP 16; TEMP 99.2; O2SAT 97
[2017-06-28 03:50] VITALS: BP 185/97; PULSE 57; RESP 16; TEMP 98.3; O2SAT 96
[2017-06-28 07:45] VITALS: PULSE 57
[2017-06-28 07:58] VITALS: BP_SYST 180; BP_SYST 189; BP_DIAS 93; BP_DIAS 97; PULSE 60; RESP 18; TEMP 98.2; O2SAT 96
[2017-06-28] MEDS: DOCUSATE SODIUM 50 MG/SENNA 8.6 MG TAB PO SCH (08:13)
[2017-06-28] MEDS: amLODIPine BESYLATE 5 MG TAB PO SCH (08:18)
[2017-06-28] MEDS: cloNIDine HCL 0.1 MG TAB PO SCH (08:18)
[2017-06-28] MEDS: MULTIVITAMINS/MINERALS THERAPEUTIC TAB PO SCH (08:18)
[2017-06-28] MEDS: FOLIC ACID 1 MG TAB PO SCH (08:18)
[2017-06-28] MEDS: SODIUM CHLORIDE 0.9% FLUSH 10 ML FLUSH IV FLUSH SCH (08:23)
[2017-06-28] MEDS ORDERED: THIAMINE IV SCH (09:00)
[2017-06-28] MEDS ORDERED: SODIUM CHLORID 0.9% IV SCH (09:00)
[2017-06-28] MEDS: SODIUM CHLOR 0.9% 1000 ML INJ 1,000 ML IV SCH (10:00)
[2017-06-28] MEDS ORDERED: THIA100 PO (11:47)
[2017-06-28] MEDS ORDERED: FOLI1TAB6 PO (11:47)
[2017-06-28] MEDS ORDERED: AMLO5 PO (11:47)
[2017-06-28] MEDS ORDERED: CLON.1 PO (11:47)
[2017-06-28] MEDS ORDERED: CHLO10CA5 PO (11:47)
--- NOTE | 2017-06-28 11:48 | HHI.FF ---
Face to Face Verification Diagnosis: (1) HTN (hypertension) (2) Hyponatremia (3) Leukocytosis (4) Tobacco abuse (5) SUNDAY (acute kidney injury) (6) Alcohol withdrawal Physical Therapy Order: Evaluate and Treat Occupational Therapy Order: Evaluate and Treat Home Health Nursing Order: Medical education Nursing assessment with vital signs I have seen patient Terence Bass on 06/28/17. My clinical findings support the need for the requested home health care services because: Ltd mobility - disease progression Limited ability to care for self I certify that my clinical findings support that this patient is homebound because: Unsteady gait/balance Tucker Cardoso MD Jun 28, 2017 11:48
--- NOTE | 2017-06-28 11:56 | HHI.PR ---
Objective Vitals Vital Signs Date Time Temp Pulse Resp B/P (MAP) Pulse Ox O2 Delivery O2 Flow Rate FiO2 06/28/17 07:58 98.2 60 18 189/97 (127) 96 180/93 (122) 06/28/17 07:45 57 06/28/17 03:50 98.3 57 16 185/97 (126) 96 06/28/17 00:01 62 06/28/17 00:01 99.2 60 16 154/81 (105) 97 06/27/17 19:57 99.1 62 16 156/89 (111) 97 06/27/17 16:56 142/92 (109) 06/27/17 15:58 98.8 64 18 172/92 (118) 96 06/27/17 15:00 60 06/27/17 13:53 166/92 (116) I/O 06/27/17 06/27/17 06/27/17 06/28/17 06/28/17 06/28/17 07:00 15:00 23:00 07:00 15:00 23:00 Intake Total 200 ml 975 ml Balance 200 ml 975 ml Intake Oral 975 ml IV Total 200 ml # Voids 2 Result Diagram: 06/26/1715 06/26/1715 Objective Remarks GENERAL: This is a frail 56 years old patient in no acute distress SKIN: No rashes, warm and dry HEAD: Atraumatic. Normocephalic. EYES: Pupils equal round and reactive. Extraocular motions intact. No scleral icterus. ENT: Nose without bleeding, or drainage, Airway patent. NECK: Trachea midline. Supple CARDIOVASCULAR: Regular rate and rhythm without murmurs, gallops, or rubs. RESPIRATORY: Fair air entry bilaterally. No wheezes, rales, or rhonchi. GASTROINTESTINAL: Abdomen soft, non-tender, nondistended. Positive bowel sounds MUSCULOSKELETAL: Extremities without clubbing, cyanosis, or edema. Pedal pulses appreciated NEUROLOGICAL: Awake and alert. Moves all extremity. Normal speech.no focal neurological deficit A/P Problem List: (1) Alcohol abuse ICD Code: F10.10 - Alcohol abuse, uncomplicated (2) Leukocytosis ICD Code: D72.829 - Elevated white blood cell count, unspecified (3) SUNDAY (acute kidney injury) ICD Code: N17.9 - Acute kidney failure, unspecified (4) Tobacco abuse ICD Code: Z72.0 - Tobacco use Assessment and Plan 1. Alcohol Abuse: w/ Acute Alcohol Intoxication. Started on CIWA, Seizure Precautions, MVT/Thiamine/Folate replacement. IVF for hydration. 2. Leukocytosis: WBC 12, afebrile, CXR w/ no acute infiltrate, no obvious infection noted. Repeat labs in am. 3. SUNDAY: Creatinine 2.33, previously 0.29 on 06/19/13. IVF for hydration. Repeat labs in a.m. 4. Tobacco Abuse: Patient counseled. NicoDerm prn if needed. 5. DVT Prophylaxis: SCD/teds. 06/26: Creatinine improved significantly from above 2 now below 1, also metabolic acidosis resolved, hypokalemic 3.3, magnesium 1.8, will replace, will do PT assessment patient feels very weak and wobbly, attentively discharge within 1-2 days if stable Leukocytosis resolved, IV hydration revealed anemia hemoglobin dropped from 14- 11, hyperchromic microcytic mostly due to alcoholism, continue thiamine and folic acid 06/27: Continue physical therapy, hopefully will be able to go home with home health and walker in a.m. Discharge Planning Plan to go home with home health care with walker a stable enough in a.m. Tucker Cardoso MD Jun 28, 2017 11:56
[2017-06-28 12:23] VITALS: BP 161/95; PULSE 73; RESP 18; TEMP 97.7; O2SAT 95
[2017-06-28 15:00] VITALS: BP 154/88
--- NOTE | 2017-06-28 18:12 | HHI.DS ---
Discharge Summary Admission Date Jun 25, 2017 at 00:58 Discharge Date: Jun 28, 2017 Admitting Diagnosis Alcohol withdrawal (1) Alcohol abuse ICD Code: F10.10 - Alcohol abuse, uncomplicated (2) Leukocytosis ICD Code: D72.829 - Elevated white blood cell count, unspecified (3) SUNDAY (acute kidney injury) ICD Code: N17.9 - Acute kidney failure, unspecified (4) Tobacco abuse ICD Code: Z72.0 - Tobacco use Procedures none Brief History - From Admission This is a 56-year-old male with PMH of HTN, Alcohol Abuse and Tobacco Abuse who presented to the ER with complaints of dizziness and "shaking". Drinks more than 12 beers/day, reports h/o withdrawal symptoms. Denies fever, chills, cough , nausea, vomiting or diarrhea. On arrival, BP 154/99, HR 128, O2 sat 99% on RA , Afebrile. WBC 12. Na 130, Creatinine 2.33, previously 0.29 on 06/19/13. INR 1.2. Alcohol negative. CXR with no acute findings. CT Head Negative for Acute Findings, Old Right Lacunar Infarct. Started on CIWA in ER. CBC/BMP: 06/26/17 0615 06/26/17 0615 Significant Findings Laboratory Tests Test 06/26/17 06:15 Red Blood Count 3.09 MIL/MM3 (4.50-5.90) Hemoglobin 11.6 GM/DL (13.0-17.0) Hematocrit 33.7 % (39.0-51.0) Mean Corpuscular Volume 109.0 FL (80.0-100.0) Mean Corpuscular Hemoglobin 37.6 PG (27.0-34.0) Platelet Count 149 TH/MM3 (150-450) Neutrophils (%) (Auto) 73.6 % (16.0-70.0) Monocytes (%) (Auto) 12.1 % (0.0-8.0) Lymphocytes # (Auto) 0.8 TH/MM3 (1.0-4.8) Total Protein 6.1 GM/DL (6.4-8.2) Albumin 3.2 GM/DL (3.4-5.0) Calcium Level 8.2 MG/DL (8.5-10.1) Aspartate Amino Transf (AST/SGOT) 64 U/L (15-37) Potassium Level 3.3 MEQ/L (3.5-5.1) PE at Discharge GENERAL: This is a frail 56 years old patient in no acute distress SKIN: No rashes, warm and dry HEAD: Atraumatic. Normocephalic. EYES: Pupils equal round and reactive. Extraocular motions intact. No scleral icterus. ENT: Nose without bleeding, or drainage, Airway patent. NECK: Trachea midline. Supple CARDIOVASCULAR: Regular rate and rhythm without murmurs, gallops, or rubs. RESPIRATORY: Fair air entry bilaterally. No wheezes, rales, or rhonchi. GASTROINTESTINAL: Abdomen soft, non-tender, nondistended. Positive bowel sounds MUSCULOSKELETAL: Extremities without clubbing, cyanosis, or edema. Pedal pulses appreciated NEUROLOGICAL: Awake and alert. Moves all extremity. Normal speech.no focal neurological deficit Hospital Course 86 years old male admitted for leukocytosis and acute kidney injury patient started on CIWA protocol seizure precaution multivitamin thiamine and folic acid and Ativan, creatinine gradually improved to normal, with IV hydration, PT OT has been following with the patient and recommended home with home health care. I had a lengthy discussion with the patient today he has been going home. He will be provided with Librium folic acid and thiamine I advised him to register with [facility] if he needs more help with alcohol abstinence Pt Condition on Discharge: Stable Discharge Disposition: Disch w/ Home Health Serv Discharge Time: > 30 minutes Discharge Instructions DIET: Follow Instructions for: Heart Healthy Diet Activities you can perform: Weight Bearing as Johnny New Medications: Chlordiazepoxide HCl (Chlordiazepoxide HCl) 10 Mg Capsule 10 TAB PO DAILY for alchol withd for 8 Days, #80 TAB 0 Refills Amlodipine (Norvasc) 5 Mg Tab 10 MG PO DAILY for htn, #30 TAB Clonidine (Catapres) 0.1 Mg Tab 0.1 MG PO DAILY for htn, #30 TAB Folic Acid (Folic Acid) 1 Mg Tablet 1 MG PO DAILY for replacemen t, #30 TAB Thiamine HCl (Gnp Vitamin B-1) 100 Mg Tab 100 MG PO DAILY for replacement , #30 TAB Nemou,Ceballos MD Jun 28, 2017 18:11
[2017-07-03] MEDS ORDERED: THIAMINE HCL 100 MG TAB PO SCH (09:00)
== END 2017-06-28 16:52 | disposition home health service (06) | DRG 897 ==
LOC: NEPD 19:46 → NEDA 06-25 00:58 → NEDH 06-25 06:11 → NEPHCDU 06-25 15:41
PROVIDERS: ADMIT Hospitalist; ATTEND Hospitalist
DX: F10.10 Alcohol abuse, uncomplicated (principal); N17.9 Acute kidney failure, unspecified; E87.2 Acidosis; E87.1 Hypo-osmolality and hyponatremia; I10 Essential (primary) hypertension; D50.8 Other iron deficiency anemias; D72.829 Elevated white blood cell count, unspecified; M19.90 Unspecified osteoarthritis, unspecified site; M25.50 Pain in unspecified joint; G89.29 Other chronic pain; E87.6 Hypokalemia; Z72.0 Tobacco use; Z23 Encounter for immunization
CPT/HCPCS: 70450; 71045; 80053; 80307; 81001; 82948; 83735; 84100; 84443; 85025; 85610; 85730; 90686; 90732; 96365; 96375; J2060; J3411; J3475; J7030; J7040; J7050; Q2038